=== PATIENT | male | born 1955 | race Caucasian/White ===

== ENCOUNTER 2018-05-13 14:40 | Inpatient (IN) | payer MEDICARE, OTHER ==
[2018-05-13] MEDS ORDERED: ALBUTEROL SO4 2.5/IPRATROPIUM 0.5 INH SOL 3 ML VIAL.NEB. NEB ONE ×2 (15:43→16:09)
--- NOTE | 2018-05-13 15:54 | PDOC ---
History of Present Illness - General Chief Complaint: Trach Tube Replacement Stated Complaint: BLOOD COMING OUT THE TRACH Time Seen by Provider: 05/13/18 15:14 History Source: Patient Exam Limitations: No Limitations - History of Present Illness Initial Comments: 05/13/18 15:49 Patient is a 62 y/o male with a history of asthma and vocal cord paralysis in 2012 with a trach who presents for bloody sputum. Patient has been congested all winter. 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 He has been feeling a little better but is still congested and having a hard time bringing up sputum. He has to cough and wheeze to bring the sputum up through his trach and he noticed it becoming big clots that were very dark colored. If the sputum is too big it gets caught in his trach and he has trouble breathing. He uses nebulizers at home to help his asthma, but he felt he was trying to bring up more sputum after using it. Denies fever, chills, nausea, vomiting, abdominal pain, or dizziness. Past History - Past Medical History Allergies/Adverse Reactions: Allergies Allergy/AdvReac Type Severity Reaction Status Date / Time Penicillins Allergy Verified 05/13/18 18:21 Home Medications: Ambulatory Orders Diazepam [Valium] 10 mg PO DAILY #10 tablet MDD 1 01/25/16 Levofloxacin [Levaquin] 750 mg PO TID #10 tablet 01/25/16 Asthma: Yes COPD: No HTN: Yes Hypercholesterolemia: Yes - Immunization History Immunization Up to Date: Yes - Suicide/Smoking/Psychosocial Hx Smoking History: Never smoked Have you smoked in the past 12 months: No Hx Alcohol Use: No Drug/Substance Use Hx: No Substance Use Type: None Review of Systems - Review of Systems Is the patient limited Azeri proficient: Yes Constitutional: No: Chills, Fever HEENTM: No: Eye Pain Respiratory: Yes: Cough, Productive cough, Hemoptysis. No: Shortness of Breath Cardiac (ROS): No: Chest Pain, Edema ABD/GI: No: Abdominal Distended, Constipated, Diarrhea, Nausea : No: Burning Musculoskeletal: No: Back Pain *Physical Exam - Vital Signs Last Vital Signs Temp Pulse Resp BP Pulse Ox 97.7 F 94 H 18 157/85 93 L 05/13/18 14:42 05/13/18 14:42 05/13/18 14:42 05/13/18 14:42 05/13/18 14:42 - Physical Exam Comments: 05/13/18 15:54 GENERAL: A&O x3, no acute distress HEENT: trach in place, no sputum curently in HEART: RRR, no murmurs, rubs or gallops LUNGS: mild expiratory wheezing diffusely ABDOMNE: soft non tender EXTREMITIES: 1+ pitting edema in LE SKIN: no rashes or ulcers noted ED Treatment Course - LABORATORY CBC & Chemistry Diagram: 05/13/18 16:39 05/13/18 17:35 Medical Decision Making - Medical Decision Making 05/13/18 15:56 duonebs ordered 05/13/18 18:27 WBC 12.4 failed outpatient antibiotics, will need inpatient treatment blood cx and sputum cx sent ddimer 490 05/13/18 18:59 spoke with Hospitalist team for admission *DC/Admit/Observation/Transfer Diagnosis at time of Disposition: Tracheitis Pneumonia Qualifiers: Pneumonia type: due to unspecified organism Laterality: unspecified laterality Lung location: unspecified part of lung Qualified Code(s): J18.9 - Pneumonia, unspecified organism - Discharge Dispostion Decision to Admit order: Yes - Referrals Referrals: Claudia Rodriguez RN [Emergency Nurse] - - Patient Instructions - Post Discharge Activity
[2018-05-13] MEDS ORDERED: CEFEPIME HCL/D5W 2 GM/50 ML BAG IVPB ONE (16:04)
[2018-05-13] MEDS ORDERED: SODIUM CHLORIDE 1,000 ML IV STA (16:04)
[2018-05-13] MEDS ORDERED: VANCOMYCIN 1 GM in D5W (PRE-DOCKED) 1,000 MG/250 ML IVPB ONE (16:06)
--- NOTE | 2018-05-13 16:24 | PDOC ---
Attending Attestation - Resident Resident Name: Sherry Ballard - ED Attending Attestation I have performed the following: I have examined & evaluated the patient, The case was reviewed & discussed with the resident, I agree w/resident's findings & plan - HPI HPI: 05/13/18 16:22 62-year-old male, with a significant past medical history of asthma and vocal cord paralysis (tracheostomy placed 3 years ago) presenting with productive cough and progressive SOB x 3 days, +hemoptysis. He is unable to quantify, but states there have been large quantities of red/black colored sputum. He was seen by Dr Bansal, his primary wig maker at [facility], started on Zpak x 6 day course and steroids beginning 05/09/18 - still on abx, but self dcd steroids due to side effect profile. Called his wig maker today, referred to the ED for further management. ENT Dr Santiago Agree with the resident's HPI and PE as documented in the electronic medical record. 05/14/18 07:09 - Physicial Exam PE: 05/13/18 16:23 NAD, speaking full sentences, PERRL, EOMI, nl conjunctiva, anicteric; neck supple. +trach in place, clear and no bleeding. lungs with scant wheezing, prolonged expiratory phase, RRR, abdomen soft nontender, obese. WILLIAMSON x4, no focal neuro deficits. No peripheral edema. normal color for ethnicity, WWP. ambulatory. No calf tenderness or 1+ bilateral pitting edema. 05/13/18 16:24 05/14/18 07:09 - Medical Decision Making 05/13/18 16:23 See HPI for details Vital signs reviewed, no fever, borderline hypoxic to 93% on RA, +coughing, but clear speech, voice box functioning. DDx SOB: ACS, PE, PTX, CHF, pulmonary edema, pleurisy, pneumonia, viral syndrome. bronchiectasis, malignancy, effusion. anemia, electrolyte/metabolic derangements. asthma exacerbation, mucus plugging. Prior notes reviewed, including admissions, discharges and consultations. labs, EKG, CXR, dimer wells score for PE 1.5 due to hemoptysis; no other risk factors including leg swelling, prolonged immobilization/surgery. if positive, CTA, if neg, consider infection as most likely etiology - bronchitis, tracheitis, pneumonia, asthma flare/URI - IV abx cefepime and vancomycin for empiric coverage, as failed outpatient Zpak. also with risk factors such as chronic trach, empirically cover for MRSA and pseudomonas. - sputum and blood cultures - duonebs for sx, coughing and scant wheezing, expectoration. dispo: admit for medical management. 05/13/18 16:24 05/13/18 16:27 05/14/18 07:09
[2018-05-13 17:01] LABS: BASO % 0.3 % (0-2.0); EOS % 0.4 % (0-4.5); HEMATOCRIT 47.7 % (35.4-49); HEMOGLOBIN 15.6 GM/dL (11.7-16.9); LYMPH % 19.9 % (8-40); MCH 29.1 pg (25.7-33.7); MCHC 32.6 g/dl (32.0-35.9); MEAN CELL VOLUME 89.4 fl (80-96); MEAN PLT VOLUME 9.7 fl (7.5-11.1); MONO % 7.1 % (3.8-10.2); NEUT % 72.3 % (42.8-82.8); PLATELET COUNT 235 K/MM3 (134-434); RBC 5.34 M/mm3 (4.00-5.60); WHITE BLOOD COUNT 12.7 K/mm3 (4.0-10.0)
[2018-05-13] MEDS ORDERED: VANCOMYCIN 1 GRAM (PRE-DOCKED) 1,000 MG/250 ML BAG IVPB ONE (17:06)
[2018-05-13 18:06] LABS: INR 0.99 (0.83-1.09); PROTHROMBIN TIME (PATIENT) 11.7 SEC (9.7-13.0)
[2018-05-13 18:27] LABS: ALBUMIN 3.4 g/dl (3.4-5.0); ALK PHOS 88 U/L (45-117); BILIRUBIN,TOTAL 0.6 mg/dL (0.2-1); BLOOD UREA NITROGEN 23 mg/dL (7-18); CALCIUM 8.7 mg/dL (8.5-10.1); CO2 24 mmol/L (21-32); CREATININE 0.8 mg/dL (0.55-1.3); GLUCOSE,RANDOM 156 mg/dL (74-106); SGOT/AST 12 U/L (15-37); SGPT/ALT 32 U/L (13-61); TOT PROT 7.2 g/dl (6.4-8.2)
[2018-05-13 19:24] LABS: ANION GAP 10 MMOL/L (8-16); CHLORIDE 103 mmol/L (98-107); POTASSIUM 4.5 mmol/L (3.5-5.1); SODIUM 137 mmol/L (136-145)
[2018-05-13] MEDS ORDERED: ALBUTEROL SO4 0.083% IH SOL 2.5 MG/3 ML VIAL.NEB. NEB PRN (20:06)
[2018-05-13] MEDS ORDERED: ENOXAPARIN NA (PORCINE) 40 MG/0.4 ML DISP.SYRIN SQ SCH (20:15)
--- NOTE | 2018-05-13 20:29 | PN ---
Teaching Attending Note Name of Resident: Dara Stinson ATTENDING PHYSICIAN STATEMENT I saw and evaluated the patient. I reviewed the resident's note and discussed the case with the resident. I agree with the resident's findings and plan as documented. SUBJECTIVE: This is a 62 year old man with a history of HTN, asthma, tracheostomy secondary to vocal cord paralysis who comes to the ED complaining of bloody sputum from his tracheostomy. He reports that he has been coughing for about 1 week. He was started on a prednisone taper by his spiral winding machine helper. He then developed bloody sputum and returned to see her 3 days ago. He was then treated with a Z-Lane. He feels that he has not improved. He notes shortness of breath, increased sputum production, and wheezing. He has been using nebulizers more frequently. He denies fevers. OBJECTIVE: Vital Signs Period Temp Pulse Resp BP Sys/López Pulse Ox Last 24 Hr 97.7 F 94 18 157/85 93-98 GENERAL: Becomes dyspneic while talking HEART: S1S2, RRR LUNGS: BS diminished throughout ABDOMEN: Obese, soft, non-tender, non-distended, normal BS EXTREMITIES: Trace edema Laboratory Tests 05/13/18 05/13/18 05/13/18 16:39 16:39 16:39 WBC 12.7 H RBC 5.34 Hgb 15.6 Hct 47.7 MCV 89.4 MCH 29.1 MCHC 32.6 RDW 14.0 Plt Count 235 MPV 9.7 Absolute Neuts (auto) 9.2 H Neutrophils % 72.3 Lymphocytes % 19.9 D Monocytes % 7.1 Eosinophils % 0.4 D Basophils % 0.3 Nucleated RBC % 0 PT with INR INR PTT (Actin FS) D-Dimer 490 Sodium Cancelled Potassium Cancelled Chloride Cancelled Carbon Dioxide Cancelled Anion Gap Cancelled BUN Cancelled Creatinine Cancelled Creat Clearance w eGFR Cancelled Random Glucose Cancelled Calcium Cancelled Total Bilirubin Cancelled AST Cancelled ALT Cancelled Alkaline Phosphatase Cancelled Total Protein Cancelled Albumin Cancelled 05/13/18 05/13/18 16:39 17:35 WBC RBC Hgb Hct MCV MCH MCHC RDW Plt Count MPV Absolute Neuts (auto) Neutrophils % Lymphocytes % Monocytes % Eosinophils % Basophils % Nucleated RBC % PT with INR 11.70 INR 0.99 PTT (Actin FS) 27.0 D-Dimer Sodium 137 Potassium 4.5 Chloride 103 Carbon Dioxide 24 Anion Gap 10 BUN 23 H Creatinine 0.8 Creat Clearance w eGFR 97.63 Random Glucose 156 H Calcium 8.7 Total Bilirubin 0.6 AST 12 L ALT 32 Alkaline Phosphatase 88 Total Protein 7.2 Albumin 3.4 Home Medications Medication Instructions Recorded Diazepam [Valium] 10 mg PO DAILY #10 tablet MDD 1 01/25/16 Levofloxacin [Levaquin] 750 mg PO TID #10 tablet 01/25/16 Amlodipine Besylate [Norvasc -] 10 mg PO DAILY 05/13/18 ASSESSMENT AND PLAN: This is a 62 year old man with a history of HTN, asthma, tracheostomy secondary to vocal cord paralysis who presented to the ED with cough, wheezing, SOB, and bloody sputum from his tracheostomy. 1. Acute asthma exacerbation secondary to tracheitis/bronchitis with hemoptysis - Completed course of prednisone and Zithromax without improvement - Cefepime, vancomycin started in ED - Start SoluMedrol, DuoNeb, albuterol as needed - Oxygen as needed to maintain saturation >90% - Pulmonary consult 2. HTN - Continue Norvasc
--- NOTE | 2018-05-13 20:29 | HP ---
CHIEF COMPLAINT:worsening shortness of breath/hemoptysis/cough PCP: dr. dennis (manager printing) HISTORY OF PRESENT ILLNESS: 62 y/o male with PMHf of HTN, vocal cord paralysis in 2012 requiring trach placement presents with worsening shortness of breath/cough with associated hemoptysis. The coughing fits started back at the begining of May and he went to see his manager printing who placed him on a prednisone taper of which he stopped by himself. However, for the past 5 days hes been having associated hemoptysis with the cough (this has happened to patient in the past), for which he went back to see his pulm doctor who placed him on a zpack on tuesday. he continued to have symptoms and the manager printing told him to come to the ER. He has had episodes like this in the past whcih get worse especially with seasons and have sometimes been associated with blood. He denies any fevers at [facility] or any recent travel, illnesses or infections. He went to his ENT back in March and had his trach changed-he gets his trach changed every 2-3 months. ER course was notable for: (1)BP 157/85; other vital vnl (2)wbc 12.7; d-dimer 490 (3)given duonebs/vanc/cefepime Recent Travel: denies PAST MEDICAL HISTORY: see above PAST SURGICAL HISTORY: knee replacement Social History: Smoking:former smoker; quuit around 17 years ago was smoking around 1 cigarette per weekend for around 10 years Alcohol:denies Drugs: denies Family History:mother of bone ca; father of [place] and also had DM Allergies Penicillins Allergy (Verified 05/13/18 18:21) HOME MEDICATIONS: Home Medications Medication Instructions Recorded Diazepam [Valium] 10 mg PO DAILY #10 tablet MDD 1 01/25/16 Levofloxacin [Levaquin] 750 mg PO TID #10 tablet 01/25/16 Amlodipine Besylate [Norvasc -] 10 mg PO DAILY 05/13/18 REVIEW OF SYSTEMS CONSTITUTIONAL: Absent: fever, chills, diaphoresis, generalized weakness, malaise, loss of appetite, weight change HEENT: Absent: rhinorrhea, nasal congestion, throat pain, throat swelling, difficulty swallowing, mouth swelling, ear pain, eye pain, visual changes CARDIOVASCULAR: Absent: chest pain, syncope, palpitations, irregular heart rate, lightheadedness , peripheral edema RESPIRATORY: Present: cough, shortness of breath, hemoptysis Absent: dyspnea with exertion, orthopnea, wheezing, stridor, GASTROINTESTINAL: Absent: abdominal pain, abdominal distension, nausea, vomiting, diarrhea, constipation, melena, hematochezia GENITOURINARY: Absent: dysuria, frequency, urgency, hesitancy, hematuria, flank pain, genital pain MUSCULOSKELETAL: Absent: myalgia, arthralgia, joint swelling, back pain, neck pain SKIN: Absent: rash, itching, pallor HEMATOLOGIC/IMMUNOLOGIC: Absent: easy bleeding, easy bruising, lymphadenopathy, frequent infections ENDOCRINE: Absent: unexplained weight gain, unexplained weight loss, heat intolerance, cold intolerance NEUROLOGIC: Absent: headache, focal weakness or paresthesias, dizziness, unsteady gait, seizure, mental status changes, bladder or bowel incontinence PSYCHIATRIC: Absent: anxiety, depression, suicidal or homicidal ideation, hallucinations. PHYSICAL EXAMINATION Vital Signs - 24 hr 05/13/18 05/13/18 14:42 15:30 Temperature 97.7 F Pulse Rate 94 H Respiratory 18 Rate Blood Pressure 157/85 O2 Sat by Pulse 93 L 98 Oximetry (%) GENERAL: Awake, alert, and fully oriented, in no acute distress. EYES: PEERLA: EOMI: no scleral icterus NECK:no JVD; no lymphadenopathy LUNGS: prolonged expiratory wheezes B/L HEART: Regular rate and rhythm, normal S1 and S2 without murmur, rub or gallop. ABDOMEN: Soft, slightly distended, +BS in all 4 quadrants MUSCULOSKELETAL: Normal range of motion at all joints. No bony deformities or tenderness. No CVA tenderness. EXTREMITIES: warm; well-perfused; no clubbing/cyanosis 1+ edema B/L NEUROLOGICAL: Cranial nerves II-XII intact. Normal speech. Normal gait. PSYCHIATRIC: Cooperative. Good eye contact. Appropriate mood and affect. SKIN: Warm, dry, normal turgor, no rashes or lesions noted, normal capillary refill. Laboratory Results - last 24 hr 05/13/18 05/13/18 05/13/18 16:39 16:39 16:39 WBC 12.7 H RBC 5.34 Hgb 15.6 Hct 47.7 MCV 89.4 MCH 29.1 MCHC 32.6 RDW 14.0 Plt Count 235 MPV 9.7 Absolute Neuts (auto) 9.2 H Neutrophils % 72.3 Lymphocytes % 19.9 D Monocytes % 7.1 Eosinophils % 0.4 D Basophils % 0.3 Nucleated RBC % 0 PT with INR INR PTT (Actin FS) D-Dimer 490 Sodium Cancelled Potassium Cancelled Chloride Cancelled Carbon Dioxide Cancelled Anion Gap Cancelled BUN Cancelled Creatinine Cancelled Creat Clearance w eGFR Cancelled Random Glucose Cancelled Calcium Cancelled Total Bilirubin Cancelled AST Cancelled ALT Cancelled Alkaline Phosphatase Cancelled Total Protein Cancelled Albumin Cancelled 05/13/18 05/13/18 16:39 17:35 WBC RBC Hgb Hct MCV MCH MCHC RDW Plt Count MPV Absolute Neuts (auto) Neutrophils % Lymphocytes % Monocytes % Eosinophils % Basophils % Nucleated RBC % PT with INR 11.70 INR 0.99 PTT (Actin FS) 27.0 D-Dimer Sodium 137 Potassium 4.5 Chloride 103 Carbon Dioxide 24 Anion Gap 10 BUN 23 H Creatinine 0.8 Creat Clearance w eGFR 97.63 Random Glucose 156 H Calcium 8.7 Total Bilirubin 0.6 AST 12 L ALT 32 Alkaline Phosphatase 88 Total Protein 7.2 Albumin 3.4 ASSESSMENT/PLAN: 62 y/o male with PMH of HTN, vocal cord paralysis requiring trach placement in 2012 presents to the ED with a three to four day history of worsening shortness of breath, cough and some hemoptysis #possible tracheitis v. bronchitis -already given vanc/cefepime in the ED -c/w cefepime and vancomycin -solumedrol 40 q8H -duoneb mara and PRN -ID consulted -pulm consulted -sputum cx pending -monitor hemodynamics -blood cx pending #HTN c/w amlodipine 10mg daily DVT PPX: scds F/E/N not on fluids monitor electrolytes sodium controlled diet dispo: med surg Visit type - Emergency Visit Emergency Visit: Yes ED Registration Date: 05/13/18 Care time: The patient presented to the Emergency Department on the above date and was hospitalized for further evaluation of their emergent condition. - New Patient This patient is new to me today: Yes Date on this admission: 05/13/18 - Critical Care Critical Care patient: No
[2018-05-13] MEDS ORDERED: ENOXAPARIN NA (PORCINE) 40 MG/0.4 ML DISP.SYRIN SQ ONE (20:30)
[2018-05-13] MEDS ORDERED: methylPREDNISolone NA SUCC 40 MG/1 ML VIAL ONE (20:31)
[2018-05-13] MEDS: methylPREDNISolone NA SUCC 40 MG/1 ML VIAL IVPUSH SCH (20:58)
[2018-05-14] MEDS ORDERED: CEFEPIME 2 GM/100 ML BAG IVPB ONE (01:56)
[2018-05-14] MEDS ORDERED: methylPREDNISolone NA SUCC 40 MG/1 ML VIAL ONE ×2 (01:57→08:16)
[2018-05-14] MEDS ORDERED: CEFEPIME 2 GM in DEXTROSE 5%-WATER 100 ML IVPB SCH (02:00)
[2018-05-14] MEDS ORDERED: CEFEPIME 1 GM in DEXTROSE 5%-WATER 100 ML IVPB SCH (02:00)
[2018-05-14] MEDS ORDERED: MELATONIN 5 MG TABLETS PO ONE (02:04)
[2018-05-14] MEDS: methylPREDNISolone NA SUCC 40 MG/1 ML VIAL IVPUSH SCH ×3 (02:26→21:25)
[2018-05-14] MEDS: CEFEPIME 2 GM in DEXTROSE 5%-WATER 100 ML IVPB SCH ×3 (02:26→22:12)
[2018-05-14] MEDS ORDERED: VANCOMYCIN HCL 1,250 MG in DEXTROSE 5%-WATER - 250 ML IVPB SCH (04:15)
[2018-05-14] MEDS: VANCOMYCIN HCL 1,250 MG in DEXTROSE 5%-WATER - 250 ML IVPB SCH ×2 (05:50→17:06)
[2018-05-14 06:20] LABS: BASO % 0.2 % (0-2.0); HEMOGLOBIN 15.4 GM/dL (11.7-16.9); LYMPH % 15.5 % (8-40); MCH 29.5 pg (25.7-33.7); MCHC 33.4 g/dl (32.0-35.9); MEAN CELL VOLUME 88.2 fl (80-96); MEAN PLT VOLUME 9.6 fl (7.5-11.1); MONO % 1.4 % (3.8-10.2); NEUT % 82.9 % (42.8-82.8); PLATELET COUNT 240 K/MM3 (134-434); RBC 5.22 M/mm3 (4.00-5.60); RDW 13.9 % (11.9-15.9)
[2018-05-14 06:48] LABS: ALBUMIN 3.3 g/dl (3.4-5.0); ALK PHOS 84 U/L (45-117); ANION GAP 9 MMOL/L (8-16); BILIRUBIN,TOTAL 0.7 mg/dL (0.2-1); BLOOD UREA NITROGEN 22 mg/dL (7-18); CALCIUM 8.4 mg/dL (8.5-10.1); CHLORIDE 102 mmol/L (98-107); CO2 25 mmol/L (21-32); GLUCOSE,RANDOM 215 mg/dL (74-106); MAGNESIUM 2.2 mg/dL (1.8-2.4); PHOSPHOROUS 4.6 mg/dL (2.5-4.9); POTASSIUM 4.8 mmol/L (3.5-5.1); SGOT/AST 10 U/L (15-37); SGPT/ALT 32 U/L (13-61); SODIUM 135 mmol/L (136-145); TOT PROT 7.2 g/dl (6.4-8.2)
[2018-05-14] MEDS ORDERED: amLODIPine BESYLATE 5 MG TABLET (FP) ONE (08:15)
[2018-05-14] MEDS ORDERED: ALBUTEROL SO4 2.5/IPRATROPIUM 0.5 INH SOL 3 ML VIAL.NEB. NEB ONE ×2 (08:15→11:46)
[2018-05-14] MEDS ORDERED: diazePAM 5 MG TABLET ONE (08:15)
[2018-05-14] MEDS: ALBUTEROL SO4 2.5/IPRATROPIUM 0.5 INH SOL 3 ML VIAL.NEB. NEB SCH ×4 (09:04→20:40)
[2018-05-14] MEDS: amLODIPine BESYLATE 10 MG TABLET (FP) PO SCH (09:04)
[2018-05-14] MEDS ORDERED: diazePAM 5 MG TABLET PO SCH (10:00)
--- NOTE | 2018-05-14 14:49 | PN ---
Progress Note (short form) - Note Progress Note: Subjective: no fever or chills. no LAFLEUR . cough with hemoptysis. no cp , no SOB Objective: Vital Signs: Last Vital Signs Temp Pulse Resp BP Pulse Ox 97.9 F 87 19 136/80 94 L 05/14/18 08:56 05/14/18 08:56 05/14/18 08:56 05/14/18 08:56 05/14/18 08:56 Laboratory Results - last 24 hr 05/13/18 05/13/18 05/13/18 16:39 16:39 16:39 WBC 12.7 H RBC 5.34 Hgb 15.6 Hct 47.7 MCV 89.4 MCH 29.1 MCHC 32.6 RDW 14.0 Plt Count 235 MPV 9.7 Absolute Neuts (auto) 9.2 H Neutrophils % 72.3 Lymphocytes % 19.9 D Monocytes % 7.1 Eosinophils % 0.4 D Basophils % 0.3 Nucleated RBC % 0 PT with INR INR PTT (Actin FS) D-Dimer 490 Sodium Cancelled Potassium Cancelled Chloride Cancelled Carbon Dioxide Cancelled Anion Gap Cancelled BUN Cancelled Creatinine Cancelled Creat Clearance w eGFR Cancelled Random Glucose Cancelled Calcium Cancelled Phosphorus Magnesium Total Bilirubin Cancelled AST Cancelled ALT Cancelled Alkaline Phosphatase Cancelled Total Protein Cancelled Albumin Cancelled 05/13/18 05/13/18 05/14/18 16:39 17:35 05:30 WBC 10.0 RBC 5.22 Hgb 15.4 Hct 46.0 MCV 88.2 MCH 29.5 MCHC 33.4 RDW 13.9 Plt Count 240 MPV 9.6 Absolute Neuts (auto) 8.3 H Neutrophils % 82.9 H Lymphocytes % 15.5 D Monocytes % 1.4 L D Eosinophils % 0.0 D Basophils % 0.2 Nucleated RBC % 0 PT with INR 11.70 INR 0.99 PTT (Actin FS) 27.0 D-Dimer Sodium 137 Potassium 4.5 Chloride 103 Carbon Dioxide 24 Anion Gap 10 BUN 23 H Creatinine 0.8 Creat Clearance w eGFR 97.63 Random Glucose 156 H Calcium 8.7 Phosphorus Magnesium Total Bilirubin 0.6 AST 12 L ALT 32 Alkaline Phosphatase 88 Total Protein 7.2 Albumin 3.4 05/14/18 05:30 WBC RBC Hgb Hct MCV MCH MCHC RDW Plt Count MPV Absolute Neuts (auto) Neutrophils % Lymphocytes % Monocytes % Eosinophils % Basophils % Nucleated RBC % PT with INR INR PTT (Actin FS) D-Dimer Sodium 135 L Potassium 4.8 Chloride 102 Carbon Dioxide 25 Anion Gap 9 BUN 22 H Creatinine 1.0 Creat Clearance w eGFR 75.47 Random Glucose 215 H Calcium 8.4 L Phosphorus 4.6 Magnesium 2.2 Total Bilirubin 0.7 AST 10 L ALT 32 Alkaline Phosphatase 84 Total Protein 7.2 Albumin 3.3 L Physical Exam: NAD CV: RRR, no MRG Lungs: CTAB , no wheezes or crackles. Ext : trace edema on legs Abd: soft, obese, Nd, nl BS , umbilical hernia. Imaging: Cxray reviewed. Assessment/Plan: 62 y/o man with h/o former smoker, HTN, asthma, tracheostomy secondary to vocal cord paralysis, who presented with few day history of hemoptysis. 1- Hemoptysis: could be due to bronchitis ( viral vs bacterial), or broncheal malignancy. No infiltrate on Cxray and no clinical signs fo PNA. - get CT scna of chest - Abx per ID - sputum cx pending . blood cx pending - add mucomyst nebs - pum eval pending 2- HTN: cont norvasc DVT PX : SCds due to hemoptysis . ambulatory Visit type - Emergency Visit Emergency Visit: Yes ED Registration Date: 05/13/18 Care time: The patient presented to the Emergency Department on the above date and was hospitalized for further evaluation of their emergent condition. - New Patient This patient is new to me today: Yes Date on this admission: 05/14/18 - Critical Care Critical Care patient: No
--- NOTE | 2018-05-14 15:41 | PN ---
Progress Note (short form) - Note Progress Note: PULMONARY CONSULTATION DICTATED 05/14/18 IMP TRACHEAL BLEEDING,? ACUTE TRACHEITIS,LOCAL INFLAMMATION H/O VOCAL CORD PARALYSIS S/P TRACH H/O ASTHMA HTN OBESITY BRONCHIECTASIS PLAN IV ABX STEROIDS INHALED BRONCHODILATORS ENT EVALUATION QUANTIFY HEMOPTYSIS DR RODRIGUEZ Problem List - Problems (1) Hemoptysis Code(s): R04.2 - HEMOPTYSIS (2) Tracheitis Code(s): J04.10 - ACUTE TRACHEITIS WITHOUT OBSTRUCTION (3) Bronchitis Code(s): J40 - BRONCHITIS, NOT SPECIFIED ACUTE OR CHRONIC (4) Tracheal hemorrhage Code(s): J95.01 - HEMORRHAGE FROM TRACHEOSTOMY STOMA
--- NOTE | 2018-05-14 16:37 | CONS ---
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 with complaint of tracheal bleeding. Patient last Tuesday he went to the hatfield at [place] apparently and after being exposed to cold and wind he started developing increasing shortness of breath, cough and wheezing. He was started on prednisone and a Z-Lane. Patient was feeling better but started developing increasing shortness of breath on Tuesday. At the time he had noticed he had big dark clots coming out of his tracheostomy. He used inhalers which offered some improvement, but his symptoms continued to recur. He called his PMD today at which time he was advised to go to the emergency room. He denies any fevers, weight loss, denies sweats, denies any history of occupational exposure to chemicals. He does have a history of exposure to fumes in the past. There is no history of DVT or PE in the past. PAST MEDICAL HISTORY: Again, includes vocal cord paralysis, asthma, obesity, steroid-induced diabetes. CURRENT MEDICATIONS: Include Solu-Medrol, cefepime, vancomycin, albuterol, DuoNeb, Norvasc and Mucomyst. REVIEW OF SYSTEMS: No orthopnea. No PND. Complains of mild shortness of breath. No chest pain. No palpitations. Positive tracheal bleeding. PHYSICAL EXAMINATION: General: The patient is an obese male wide awake, alert in no acute distress. Vital Signs: He is afebrile. Respiratory rate is 19. O2 saturation 94% on room air. HEENT: His head is normocephalic, atraumatic. Neck: Supple. Heart: Regular, S1, S2. Chest: Clear. A few scattered bilateral wheezes. Abdomen: Soft. Bowel sounds are positive. Extremities: No cyanosis or edema. LABORATORIES: WBC is 10, hemoglobin 15.4, hematocrit 46, platelet count of 240,000. There are 82 polys, 15 lymphs and 1 mono. BUN 22, creatinine 1.0. Chest CT unofficial read reveals no acute infiltrates. There is some pleural thickening bilaterally and some mild bronchiectatic changes bilaterally. IMPRESSION: 1. Tracheal bleeding, possible tracheitis, possibly secondary to local trauma. 2. Possible bronchitis. 3. History of vocal cord paralysis, status post tracheostomy. 4. Asthma. 5. Obesity. 6. Hypertension. 7. Bronchiectasis. PLAN: Continue IV antibiotics, inhaled IV steroids, inhaled bronchodilators, ENT evaluation, quantify hemoptysis. DAVID RODRIGUEZ M.D. [id number]
--- NOTE | 2018-05-14 18:01 | EKG ---
Test Reason : Blood Pressure : / mmHG Vent. Rate : 097 BPM Atrial Rate : 097 BPM P-R Int : 162 ms QRS Dur : 086 ms QT Int : 342 ms P-R-T Axes : 047 020 018 degrees QTc Int : 434 ms NORMAL SINUS RHYTHM LOW VOLTAGE QRS BORDERLINE ECG WHEN COMPARED WITH ECG OF 25-JAN-2016 20:57, NONSPECIFIC T WAVE ABNORMALITY NOW EVIDENT IN INFERIOR LEADS Confirmed by CAROLYN SWAIN, JUANPABLO ([id number]) on 05/14/2018 6:01:41 PM Referred By: Confirmed By:JUANPABLO LEON MD
[2018-05-14 21:20] VITALS: BMI 48.9
[2018-05-14] MEDS ORDERED: ACETYLCYSTEINE 20% 200MG/ML 30 ML VIAL *FOR ORAL / INH USE ONLY NEB SCH (22:00)
[2018-05-15] MEDS: methylPREDNISolone NA SUCC 40 MG/1 ML VIAL IVPUSH SCH ×2 (03:02→09:11)
[2018-05-15] MEDS: CEFEPIME 2 GM in DEXTROSE 5%-WATER 100 ML IVPB SCH ×2 (03:32→13:10)
[2018-05-15 07:44] LABS: BASO % 0.1 % (0-2.0); HEMATOCRIT 44.6 % (35.4-49); HEMOGLOBIN 14.8 GM/dL (11.7-16.9); MCH 29.2 pg (25.7-33.7); MCHC 33.2 g/dl (32.0-35.9); MEAN CELL VOLUME 87.9 fl (80-96); MEAN PLT VOLUME 9.4 fl (7.5-11.1); MONO % 4.7 % (3.8-10.2); NEUT % 85.2 % (42.8-82.8); PLATELET COUNT 237 K/MM3 (134-434); RBC 5.07 M/mm3 (4.00-5.60); WHITE BLOOD COUNT 12.1 K/mm3 (4.0-10.0)
[2018-05-15] MEDS ORDERED: VANCOMYCIN HCL 1,250 MG in DEXTROSE 5%-WATER - 250 ML IVPB SCH (08:00)
[2018-05-15] MEDS: ALBUTEROL SO4 2.5/IPRATROPIUM 0.5 INH SOL 3 ML VIAL.NEB. NEB SCH ×2 (08:00→12:00)
[2018-05-15 08:08] LABS: ANION GAP 10 MMOL/L (8-16); BLOOD UREA NITROGEN 26 mg/dL (7-18); CALCIUM 8.7 mg/dL (8.5-10.1); CHLORIDE 102 mmol/L (98-107); CO2 24 mmol/L (21-32); GLUCOSE,RANDOM 242 mg/dL (74-106); POTASSIUM 4.6 mmol/L (3.5-5.1); SODIUM 136 mmol/L (136-145)
[2018-05-15] MEDS ORDERED: PT OWN MED DRAWER 7, Y5N ONE ×2 (08:43→17:39)
[2018-05-15] MEDS ORDERED: ACETYLCYSTEINE 20% 200MG/ML 4 ML VIAL *FOR ORAL / INH USE ONLY NEB SCH (10:00)
[2018-05-15] MEDS: amLODIPine BESYLATE 10 MG TABLET (FP) PO SCH (10:25)
--- NOTE | 2018-05-15 12:01 | PN ---
Progress Note (short form) - Note Progress Note: PULMONARY States bleeding has largely ceased, just a few residual specks. No fevers. Vital Signs Period Temp Pulse Resp BP Sys/López Pulse Ox Last 24 Hr 97.9 F-98.1 F 91-112 20-20 100-130/49-79 92 Gen: NAD at rest Heart: RRR Lung: decreased breath sounds at the bases Abd: soft, nontender Ext: no edema CBC, BMP 05/15/18 07:05 05/15/18 07:05 Active Medications Acetylcysteine (Mucomyst 20 Oral / Inh Use Only*) 600 mg NEB BID BENNY Albuterol Sulfate (Ventolin 0.083% Nebulizer Soln -) 1 amp NEB Q4H PRN PRN Reason: SHORTNESS OF BREATH Albuterol/Ipratropium (Duoneb -) 1 amp NEB RQID BENNY Last Admin: 05/15/18 08:00 Dose: 1 amp Amlodipine Besylate (Norvasc -) 10 mg PO DAILY BENNY Last Admin: 05/15/18 10:25 Dose: 10 mg Cefepime HCl 2 gm/ Dextrose 100 mls @ 200 mls/hr IVPB Q8H-IV BENNY; Protocol Last Admin: 05/15/18 03:32 Dose: 200 mls/hr Vancomycin HCl 1,250 mg/ (Dextrose) 250 mls @ 166.667 mls/hr IVPB Q12H BENNY; Protocol Last Admin: 05/15/18 09:12 Dose: 166.667 mls/hr Methylprednisolone Sodium Succinate (Solu-Medrol -) 40 mg IVPUSH Q6H-IV BENNY Last Admin: 05/15/18 09:11 Dose: 40 mg A/P Hemoptysis Likely Acute Tracheitis Vocal Cord Paralysis s/p tracheostomy Bronchiectasis Asthma HTN Morbid Obesity - can change steroids and antibiotics to PO, can change medrol to prednisone 40mg daily for 3 more days (10 days total combined) - inhaled bronchodilators - can d/c home with outpt f/u from pulmonary standpoint (sees Dr Bansal)
--- NOTE | 2018-05-15 14:21 | PN ---
Physical Exam: SUBJECTIVE: Patient seen and examined this AM. No acute overnight events as per nursing. No new complaints---Patient feels much better and admits to decreased secretions and no further hemoptysis. Denies fevers, chills, chest pain, SOB, nausea vomiting, diarrhea, constipation OBJECTIVE: Vital Signs Period Temp Pulse Resp BP Sys/López Pulse Ox Last 24 Hr 97.9 F-98.1 F 91-112 20-20 100-130/49-79 92 GENERAL: The patient is awake, alert, and fully oriented, in no acute distress. HEAD: NCAT EYES: PERRL, EOMI ENT: Moist mucous membranes. NECK: Midline trach in place with speaking valve intact; No surrounding erythema or discharge LUNGS: Clear to auscultation bilaterally, no wheezes, no crackles HEART: Regular rate and rhythm, S1, S2 without murmur ABDOMEN: Soft, Obese, nontender, nondistended, + bowel sounds, no guarding EXTREMITIES: Trace edema. NEUROLOGICAL: Cranial nerves II through XII grossly intact. Normal speech. SKIN: Warm, dry Laboratory Results - last 24 hr 05/15/18 05/15/18 07:05 07:05 WBC 12.1 H RBC 5.07 Hgb 14.8 Hct 44.6 MCV 87.9 MCH 29.2 MCHC 33.2 RDW 14.0 Plt Count 237 MPV 9.4 Absolute Neuts (auto) 10.3 H Neutrophils % 85.2 H Lymphocytes % 10.0 D Monocytes % 4.7 D Eosinophils % 0.0 Basophils % 0.1 Nucleated RBC % 0 Sodium 136 Potassium 4.6 Chloride 102 Carbon Dioxide 24 Anion Gap 10 BUN 26 H Creatinine 1.0 Creat Clearance w eGFR 75.47 Random Glucose 242 H Calcium 8.7 Active Medications Acetylcysteine (Mucomyst 20 Oral / Inh Use Only*) 600 mg NEB BID [facility] Last Admin: 05/15/18 10:30 Dose: 600 mg Albuterol Sulfate (Ventolin 0.083% Nebulizer Soln -) 1 amp NEB Q4H PRN PRN Reason: SHORTNESS OF BREATH Last Admin: 05/15/18 12:45 Dose: 1 amp Albuterol/Ipratropium (Duoneb -) 1 amp NEB RQID [facility] Last Admin: 05/15/18 12:00 Dose: 1 amp Amlodipine Besylate (Norvasc -) 10 mg PO DAILY [facility] Last Admin: 05/15/18 10:25 Dose: 10 mg Cefepime HCl 2 gm/ Dextrose 100 mls @ 200 mls/hr IVPB Q8H-IV [facility]ENNY; Protocol Last Admin: 05/15/18 13:10 Dose: 200 mls/hr Vancomycin HCl 1,250 mg/ (Dextrose) 250 mls @ 166.667 mls/hr IVPB Q12H [facility]ENNY; Protocol Last Admin: 05/15/18 09:12 Dose: 166.667 mls/hr Methylprednisolone Sodium Succinate (Solu-Medrol -) 40 mg IVPUSH Q6H-IV BENNY Last Admin: 05/15/18 09:11 Dose: 40 mg Microbiology 05/13/18 17:35 Sputum - Expectorated Sputum Culture - Preliminary NORMAL RESPIRATORY NEGAR 05/13/18 16:20 Blood - Peripheral Venous Blood Culture - Preliminary NO GROWTH OBTAINED AFTER 24 HOURS, INCUBATION TO CONTINUE FOR 4 DAYS. 05/13/18 16:20 Blood - Peripheral Venous Blood Culture - Preliminary NO GROWTH OBTAINED AFTER 24 HOURS, INCUBATION TO CONTINUE FOR 4 DAYS. IMAGING: -CXR: 2 views of the chest reveal a normal heart, normal aorta, prominent nany, tracheostomy tube and clear lung hoyos. The ends are sharp. The bones are intact. There are excessive soft tissues. Since the prior study of 01/25/2016, the mediastinum is slightly more prominent. -CT Chest without contrast: No acute lung disease is present. Tiny calcified granuloma in the right middle lobe measuring 2 mm. No enlarged mediastinal or hilar lymph nodes are identified. Partially included right renal masslike density measuring 4.8 cm for which further evaluation is strongly recommended -EKG: NSR, Low voltage QRS, VR 97, QTc 434 ASSESSMENT/PLAN: 62 y/o male with PMH of HTN, vocal cord paralysis requiring trach placement in 2012 presents to the ED with a three to four day history of worsening shortness of breath, cough and some hemoptysis #Hemoptysis -Consider viral bronchitis vs Broncheal malignancy -Imaging and Cultures noted above -Will Transition cefepime and vancomycin to PO ABx pending ID Evaluation -Transition from IV to PO Prednisone 40mg daily for 3 more days as per pulm rec' s -Continue inhaled bronchodilators--Mucomyst, Albuterol Nebs, Albuterol/ Ipatropium -ID (Dr. Eddy) consulted -Pulmonary (Dr. Wilson) consulted, Appreciate rec's -ENT (Dr. Garcia) Consulted for hx of vocal cord paralysis #Hx of HTN -Continue home dose Amlodipine 10mg daily #FEN -Not on standing fluids -monitor electrolytes -sodium controlled diet #PPX -DVT: SCDs
--- NOTE | 2018-05-15 14:51 | PN ---
Progress Note (short form) - Note Progress Note: ID CONSULT DICTATED TRACHEOBRONCHITIS HX VOCAL CORD PARALYSIS S/P TRACH PCN ALLERGY INCIDENTAL R KIDNEY MASS SUBSTITUTE LEVAQUIN 750MG PO QD 7D ENT F/U
--- NOTE | 2018-05-15 17:57 | PN ---
Teaching Attending Note Name of Resident: Katelynn Toledo ATTENDING PHYSICIAN STATEMENT I saw and evaluated the patient. I reviewed the resident's note and discussed the case with the resident. I agree with the resident's findings and plan as documented. SUBJECTIVE: No pain, no SOB, wants to go home OBJECTIVE: NAD. Trach with cap CV: RRR, no MRG Lungs: CTAB, no wheezes or crackles. Ext : trace edema on legs Assessment/Plan: 62 y/o man with h/o former smoker, HTN, asthma, tracheostomy secondary to vocal cord paralysis, who presented with few day history of hemoptysis. 1- Hemoptysis: could be due to bronchitis ( viral vs bacterial), or broncheal malignancy. CT with no lung masses or obvious broncheal masses - switch to po steroid and po abx -f/u with ENt as out pt 2- HTN: cont norvasc 3- incidental renal mass on CT f chest. this is to be worked up with UA, cytology, CT abd/pelvis, and possibly Bx. referral to urology as out pt. he understand this could be cancer and agrees to follow up dc home
[2018-05-15 18:21] VITALS: BP 144/88; PULSE 93; TEMP 97.5
--- NOTE | 2018-05-15 18:56 | CONS ---
DATE OF CONSULTATION: DATE OF DICTATION: 05/15/2018 INFECTIOUS DISEASE CONSULTATION HISTORY OF PRESENT ILLNESS: The patient is a 62-year-old male with a history of vocal cord paralysis evaluated for acute tracheal bronchitis. Patient [place] He developed a respiratory tract illness. He began to experience shortness of breath and cough. He was seen as an outpatient by his oil heaterman, and he was prescribed a Z-Lane and prednisone. Patient is completing the course of Zithromax. He developed a worsening cough productive of blood-streaked sputum. He was advised of evaluation in the emergency room. Patient was evaluated, noted to have an elevated white blood cell count. CAT scan of the chest was negative for acute infiltrate. He was empirically treated with vancomycin and cefepime. PAST MEDICAL HISTORY: Positive for idiopathic vocal cord paralysis diagnosed in 2012. He is status post tracheostomy which is changed every 2-3 months, history of bronchial asthma. ALLERGIES: PENICILLIN. Patient unaware the exact nature of the allergy. It happened in childhood, and he believes it was a rash. No history of anaphylaxis. MEDICATION: Include vancomycin, cefepime, prednisone, Ventolin, Norvasc. SOCIAL HISTORY: Former smoker. 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 SYSTEMS REVIEW: Neurologic: No loss of consciousness, seizure activity, focal weakness. Cardiac: Negative for chest pain or palpitations. Respiratory: As per HPI. Gastrointestinal: Negative vomiting or diarrhea. Genitourinary: Negative for urinary tract infection. LABORATORY DATA: White count 12.1, hematocrit 44.6, platelet count 237, creatinine 1.0. Blood cultures negative. Sputum culture normal yandel. PHYSICAL EXAMINATION: General: Patient is out of bed to chair. He is obese. In no acute distress. Breathing is nonlabored. Vital signs: Temperature 98.1, blood pressure 100/49, pulse 91 and regular, respirations 20 per minute. HEENT: Sclerae anicteric. Tracheostomy site, no bleeding noted. Cardiovascular: Heart sounds S1, S2. Lungs: Clear bilaterally, no rhonchi, rales, or wheezing. Abdomen: Obese. Soft, nontender. Extremities: Negative for edema. IMPRESSION: 1. Acute tracheobronchitis. 2. History of vocal cord paralysis status post tracheostomy. 3. PENICILLIN allergy. 4. Incidental right kidney mass. Substitute Levaquin 750 mg daily for 7 days in this patient with PENICILLIN allergy. ENT followup. Patient will make arrangements to follow up the incidental finding of the right renal mass as an outpatient. SINTIA CULLEN M.D. [id number]
--- NOTE | 2018-05-15 19:14 | DS ---
Physical Exam: SUBJECTIVE: Patient seen and examined this AM. No acute overnight events as per nursing. No new complaints---Patient feels much better and admits to decreased secretions and no further hemoptysis. Denies fevers, chills, chest pain, SOB, nausea vomiting, diarrhea, constipation OBJECTIVE: Vital Signs Period Temp Pulse Resp BP Sys/López Pulse Ox Last 24 Hr 97.5 F-98.1 F 91-112 20-20 100-144/49-88 92 PHYSICAL EXAM GENERAL: The patient is awake, alert, and fully oriented, in no acute distress. HEAD: NCAT EYES: PERRL, EOMI ENT: Moist mucous membranes. NECK: Midline trach in place with speaking valve intact; No surrounding erythema or discharge LUNGS: Clear to auscultation bilaterally, no wheezes, no crackles HEART: Regular rate and rhythm, S1, S2 without murmur ABDOMEN: Soft, Obese, nontender, nondistended, + bowel sounds, no guarding EXTREMITIES: Trace edema. NEUROLOGICAL: Cranial nerves II through XII grossly intact. Normal speech. SKIN: Warm, dry LABS Laboratory Results - last 24 hr 05/15/18 05/15/18 07:05 07:05 WBC 12.1 H RBC 5.07 Hgb 14.8 Hct 44.6 MCV 87.9 MCH 29.2 MCHC 33.2 RDW 14.0 Plt Count 237 MPV 9.4 Absolute Neuts (auto) 10.3 H Neutrophils % 85.2 H Lymphocytes % 10.0 D Monocytes % 4.7 D Eosinophils % 0.0 Basophils % 0.1 Nucleated RBC % 0 Sodium 136 Potassium 4.6 Chloride 102 Carbon Dioxide 24 Anion Gap 10 BUN 26 H Creatinine 1.0 Creat Clearance w eGFR 75.47 Random Glucose 242 H Calcium 8.7 Microbiology 05/13/18 16:20 Blood - Peripheral Venous Blood Culture - Preliminary NO GROWTH OBTAINED AFTER 72 HOURS, INCUBATION TO CONTINUE FOR 2 DAYS. 05/13/18 16:20 Blood - Peripheral Venous Blood Culture - Preliminary NO GROWTH OBTAINED AFTER 72 HOURS, INCUBATION TO CONTINUE FOR 2 DAYS. 05/13/18 17:35 Sputum - Expectorated Gram Stain - Final 05/13/18 17:35 Sputum - Expectorated Sputum Culture - Final Diphtheroid/Corynebacterium IMAGING: -CXR: 2 views of the chest reveal a normal heart, normal aorta, prominent nany, tracheostomy tube and clear lung hoyos. The ends are sharp. The bones are intact. There are excessive soft tissues. Since the prior study of 01/25/2016, the mediastinum is slightly more prominent. -CT Chest without contrast: No acute lung disease is present. Tiny calcified granuloma in the right middle lobe measuring 2 mm. No enlarged mediastinal or hilar lymph nodes are identified. Partially included right renal masslike density measuring 4.8 cm for which further evaluation is strongly recommended -EKG: NSR, Low voltage QRS, VR 97, QTc 434 HOSPITAL COURSE: Date of Admission:05/13/18 Date of Discharge: 05/15/18 62 y/o male with PMH of HTN, vocal cord paralysis requiring trach was admitted for SOB and hemoptysis. Imaging and cultures were done noted above. Patient completed a course of IV ABx and Steroids. ID, Pulmonary were consulted. Patient continued his home dose medications. He was advised to follow up with Urology regarding the above mentioned Renal mass. His SOB improved and hemoptysis resolved. Patient was d/c'ed home with Ventolin, Levaquin, and Deltasone. Additionally patient was given strict instructions for follow up. Minutes to complete discharge: 36 Discharge Summary Reason For Visit: TRACHEITIS,PNEUMONIA Condition: Improved - Instructions Diet, Activity, Other Instructions: You presented to the hospital for bleeding from your trach site and worsening SOB. Medication Changes: 1. Please Start Levaquin 750mg Daily for 7 days course 2. Please continue Prednisone 40mg Daily for 3 days course Follow up with the following physicians: 1. PCP in one week 2. Please schedule an appointment with Urology ( Dr. ruano)to further manage the Renal mass found on CT Scan---This is of the utmost importance as this mass can represent Cancer. 3. Please follow up with ENT outpatient to further evaluate your Vocal cords. please see your own ENT doctor or Dr. Hernandez 4. Please follow up with your Textile Engineer Please continue to monitor your diet as you need to intake less sugar and drink plenty of fluids. Continue all your other medications as prescribed Please return to the ER if you have any signs or symptoms of chest pain, shortness of breath, uncontrollable fever, chills, nausea, vomiting, numbness, tingling, or weakness in any part of your body, changes in vision, or slurred speech. Please return to the ER if symptoms persist, worsen, or new symptoms arise. Referrals: Mauricio Bansal MD [Non Staff, Medical] - Dayday Jhaveri MD [Staff Physician] - Jere Segundo MD [Staff Physician] - Disposition: HOME - Home Medications Comprehensive Discharge Medication List: Ambulatory Orders Amlodipine Besylate [Norvasc -] 10 mg PO DAILY 05/13/18 Albuterol 0.083% Nebulizer Hillary [Ventolin 0.083% Nebulizer Soln -] 1 amp NEB Q4H PRN #1 amp 05/15/18 levoFLOXacin [Levaquin] 750 mg PO DAILY #7 tab 05/15/18 predniSONE [Deltasone -] 40 mg PO DAILY 3 Days #6 tablet 05/15/18 This patient is new to me today: No Emergency Visit: Yes ED Registration Date: 05/13/18 Care time: The patient presented to the Emergency Department on the above date and was hospitalized for further evaluation of their emergent condition. Critical Care patient: No - Discharge Referral Referred to [facility] Med P.C.: No
[2018-05-16] MEDS ORDERED: levoFLOXacin 750 MG TABLET PO SCH (06:00)
[2018-05-16] MEDS ORDERED: predniSONE 20 MG TABLET (UD) PO SCH (10:00)
== END 2018-05-15 19:05 | disposition home or self-care (01) | DRG 202 ==
LOC: SUPCPDRO 14:40 → JER 14:40 → JERBED 19:00 → J5S 05-14 19:24
PROVIDERS: ADMIT Internal Medicine; ATTEND Internal Medicine
DX: J40 Bronchitis, not specified as acute or chronic (principal); R04.2 Hemoptysis; Z68.42 Body mass index [BMI] 45.0-49.9, adult; J45.901 Unspecified asthma with (acute) exacerbation; J04.10 Acute tracheitis without obstruction; Z93.0 Tracheostomy status; I10 Essential (primary) hypertension; J47.9 Bronchiectasis, uncomplicated; E66.01 Morbid (severe) obesity due to excess calories
CPT/HCPCS: 36415; 71045-TC-FY; 71250-TC; 80048; 80053; 83735; 84100; 85025; 85379; 85610; 85730; 87040; 87070; 87077; 87205; 93005; 93010; 94640; 99283-25; J7030